=== PATIENT | female | born 1960 ===

== ENCOUNTER → 2018-05-24 | Day surgery (SDC) | payer OTHER | END | disposition home or self-care (01) | LOC: ADM 05-20 10:30 → AMB-ENDOS 10:30 | DX: K29.60 Other gastritis without bleeding (principal); K64.1 Second degree hemorrhoids ==

== ENCOUNTER 2020-06-11 05:25 | Day surgery (SDC) | payer OTHER | END 2020-06-11 11:25 | disposition home or self-care (01) | LOC: AMB-ENDOS 05:25 | PROVIDERS: ATTEND Colon & Rectal Surgery | DX: K62.89 Other specified diseases of anus and rectum (principal); K29.50 Unspecified chronic gastritis without bleeding; K64.2 Third degree hemorrhoids; Z20.822 Contact with and (suspected) exposure to COVID-19 ==

== ENCOUNTER 2023-11-21 09:09 | Outpatient (CLI) | payer OTHER ==
[2023-11-21 10:03] LABS: HEMATOCRIT 41.9 % (36.0-45.00); HEMOGLOBIN 13.6 g/dL (12.0-15.00); MEAN CELL VOLUME 84.4 fL (80.00-100.00); MEAN CORPUSCULAR HEMOGLOBIN 27.3 pg (27.00-32.0); MEAN CORPUSCULAR HGB CONC 32.4 g/dl (32.0-36.0); PLATELET COUNT 233 K/uL (150-450); RED BLOOD COUNT 4.97 M/uL (4.00-6.00); RED CELL DISTRIBUTION WIDTH 14.2 % (11.5-14.5)
[2023-11-21 10:30] LABS: URINE APPEARANCE Clear; URINE BILIRRUBIN Negative (NEGATIVE); URINE BLOOD Negative; URINE COLOR Yellow; URINE GLUCOSE Negative (NEGATIVE); URINE KETONE Negative (NEGATIVE); URINE LEUKOCYTE Negative; URINE NITRATE Negative; URINE PROTEIN Negative (NEGATIVE); URINE UROBILINOGEN 0.2 E.U./dl
[2023-11-21 10:34] LABS: URINE EPITHELIAL CELLS 1.9 uL (0.0-38.8); URINE RBC 16.7 uL (0.0-20.8)
[2023-11-21 10:35] LABS: INR 0.96; PARTIAL THROMBOPLASTIN TIME 30.2 SECONDS (22.0-34.0); PROTHROMBIN TIME 10.5 SECONDS (9.0-11.5)
[2023-11-21 10:39] LABS: ALBUMIN 3.8 gm/dL (3.4-5.0); BILIRUBIN TOTAL 0.49 mg/dL (0.3-1.2); CALCIUM 9.6 mg/dL (8.5-10.1); CREATININE SERUM 0.86 mg/dL (0.55-1.02); GFR 66.64; GLOBULINA 3.7 G/DL (2.4-3.5); POTASSIUM 4.27 mEq/L (3.5-5.1); TOTAL PROTEIN 7.5 gm/dL (6.4-8.2)
[2023-11-21 10:41] LABS: URINE BACTERIA 2.5 uL (0.0-1933); URINE WBC 0.9 uL (0.0-23.2)
[2023-11-23 12:06] LABS: hav igm Negative (Negative); hcv Non Reactive (Non Reactive); hep b c Negative (Negative); hep b s ag Negative (Negative)
== END 2023-11-21 09:20 | disposition home or self-care (01) ==
LOC: LAB 09:09
PROVIDERS: ATTEND Specialist
DX: E55.9 Vitamin D deficiency, unspecified (principal); E53.9 Vitamin B deficiency, unspecified; R79.0 Abnormal level of blood mineral; Z01.818 Encounter for other preprocedural examination; Z11.4 Encounter for screening for human immunodeficiency virus [HIV]; N39.0 Urinary tract infection, site not specified; R63.4 Abnormal weight loss; K73.9 Chronic hepatitis, unspecified; Z32.00 Encounter for pregnancy test, result unknown; D52.9 Folate deficiency anemia, unspecified; E53.8 Deficiency of other specified B group vitamins; E78.9 Disorder of lipoprotein metabolism, unspecified

== ENCOUNTER 2023-11-23 05:20 | Day surgery (SDC) | payer OTHER ==
[2023-11-22 12:42] VITALS: BP 159/89
[~2023-11-23] VITALS: Ht 157.5 cm; Wt 77.1 kg
[2023-11-23] MEDS ORDERED: CEFAZOLIN SODIUM 1,000 MG VIAL ONE (09:12)
[2023-11-23] MEDS ORDERED: ENOXAPARIN SODIUM 40 MG/0.4 ML SYRINGE SUBCUTANEO ONE (09:12)
[2023-11-23] MEDS ORDERED: CHLORHEXIDINE GLUCONATE 120 ML BOTTLE TOP ONE (09:24)
[2023-11-23] MEDS ORDERED: EPINEPHRINE HCL/PF 1 MG/ML AMPUL ONE (09:40)
[2023-11-23] MEDS ORDERED: BUPIVACAINE HCL 0.5% 50ML VIAL ONE (09:41)
[2023-11-23] MEDS ORDERED: LIDOCAINE HCL 1%/EPINEPHRINE 20ML VIAL IJ ONE (09:41)
[2023-11-23] MEDS ORDERED: POVIDONE-IODINE 118 ML BOTT TOP ONE (10:24)
[2023-11-23] MEDS ORDERED: TRANEXAMIC ACID 100MG/1ML (1000MG) AMPUL IV ONE (10:34)
[2023-11-23] MEDS ORDERED: ERYTHROMYCIN BASE 1 GM TUBE OP ONE (11:10)
== END 2023-11-23 18:30 | disposition home or self-care (01) ==
LOC: CIR.AMB 05:20
PROVIDERS: ATTEND Specialist
DX: R23.8 Other skin changes (principal); H02.834 Dermatochalasis of left upper eyelid; K57.90 Diverticulosis of intestine, part unspecified, without perforation or abscess without bleeding; H52.209 Unspecified astigmatism, unspecified eye; H26.9 Unspecified cataract